=== PATIENT | female | born 1995 | race African-American/Black ===

== ENCOUNTER 2020-04-30 06:00 | Inpatient (IN) | payer OTHER ==
[2020-04-30] MEDS: ELECTROLYTE-148 SOLN 1,000 ML IV SCH ×2 (07:00→09:00)
--- NOTE | 2020-04-30 07:49 | HP ---
Past Medical History - Primary Care Physician PCP:: Samy Garcia - Admission Chief Complaint: painful UC History of Present Illness: 25 yo EDC 05/03/2020 (first sono @ 11 wks) presents to LD c/o painful UC; pt states that is leaking clear fluid since yesterday History Source: Patient Limitations to Obtaining History: No Limitations - Past Medical History ...: 1 ...Para: 0 ...EDC by Sono: 05/03/20 - Past Surgical History Past Surgical History: Yes: None Hx Myomectomy: No Hx Transabdominal Cerclage: No - Smoking History Smoking history: Never smoked Have you smoked in the past 12 months: No - Alcohol/Substance Use History of Substance Use: reports: None (Thoracic dextroscoliosis) - Social History History of Recent Travel: No Home Medications - Allergies Allergies/Adverse Reactions: Allergies Allergy/AdvReac Type Severity Reaction Status Date / Time No Known Allergies Allergy Verified 04/30/20 06:53 - Home Medications Home Medications: Ambulatory Orders Pnv No.95/Ferrous Fum/Folic AC [ Vitamin Tablet] 1 each PO DAILY 04/30/20 Family Medical History Family History: Unremarkable Review of Systems - Review of Systems Constitutional: reports: No Symptoms Eyes: reports: No Symptoms HENT: reports: No Symptoms Neck: reports: No Symptoms Cardiovascular: reports: No Symptoms Respiratory: reports: No Symptoms Gastrointestinal: reports: No Symptoms Genitourinary: reports: No Symptoms, Pain Breasts: reports: No Symptoms Reported Musculoskeletal: reports: No Symptoms Integumentary: reports: No Symptoms Neurological: reports: No Symptoms Endocrine: reports: No Symptoms Hematology/Lymphatic: reports: No Symptoms Psychiatric: reports: No Symptoms Physical Exam - Maternity Vital Signs: Vital Signs Temperature 98.2 F 04/30/20 07:00 Pulse Rate 80 04/30/20 07:00 Respiratory Rate 20 04/30/20 07:00 Blood Pressure 141/81 04/30/20 07:00 O2 Sat by Pulse Oximetry (%) Constitutional: Yes: Well Nourished, No Distress Eyes: Yes: WNL HENT: Yes: WNL Neck: Yes: WNL Cardiovascular: Yes: WNL Breast(s): Yes: WNL - Abdominal Exam/OB Number of Fetuses: Single Presentation: Vertex Contractions: Yes Regularity: Regular Intensity: Mild/Mod Monitor Mode: External Heart Rate Location: [facility] Category: I Accelerations: Uniform Decelerations: None - Vaginal Exam/OB Dilatation (cm): 6 Effacement (%): 100 Amniotic Membrane Status: Ruptured Presentation: Vertex/Position Station: 0 - Physical Exam Musculoskeletal: Yes: WNL Extremities: Yes: WNL Edema: Yes Integumentary: Yes: WNL ...Motor Strength: WNL Psychiatric: Yes: WNL Hemorrhage Risk Assessment - Risk Factors Risk Score: 1 Risk Level: Medium Risk Problem List - Problems (1) 39 weeks gestation of Code(s): Z3A.39 - 39 WEEKS GESTATION OF (2) SROM (spontaneous rupture of membranes) Code(s): VJI4972 - (3) Morbid (severe) obesity due to excess calories Code(s): E66.01 - MORBID (SEVERE) OBESITY DUE TO EXCESS CALORIES Assessment/Plan Admit to LD Anticipate
[2020-04-30 08:05] LABS: INR 0.94 (0.83-1.09); PROTHROMBIN TIME (PATIENT) 11.1 SEC (9.7-13.0)
[2020-04-30 08:07] LABS: ACTIVATED PTT 31.7 SECONDS (25.2-36.5)
[2020-04-30 08:13] LABS: BASO % 0.5 % (0-2.0); EOS % 0.2 % (0-4.5); HEMATOCRIT 39.6 % (32.4-45.2); LYMPH % 16.6 % (8-40); MCH 28.5 pg (25.7-33.7); MCHC 32.7 g/dl (32.0-36.0); MEAN CELL VOLUME 87.1 fl (80-96); MEAN PLT VOLUME 8.9 fl (7.5-11.1); MONO % 5.5 % (3.8-10.2); NEUT % 77.2 % (42.8-82.8); PLATELET COUNT 205 K/MM3 (134-434); RBC 4.55 M/mm3 (3.60-5.2); RDW 15.9 % (11.6-15.6); WHITE BLOOD COUNT 13.5 K/mm3 (4.0-10.0)
[2020-04-30 08:15] VITALS: BMI 43.3
[2020-04-30 08:22] LABS: POTASSIUM 3.9 mmol/L (3.5-5.1)
[2020-04-30] MEDS ORDERED: FENTANYL/BUPIVACAINE/NS/PF - PCEA - 50 ML DISP.SYRIN EP ONE ×2 (08:22→13:23)
[2020-04-30 08:28] LABS: BLOOD UREA NITROGEN 8.5 mg/dL (7-18); CALCIUM 8.9 mg/dL (8.5-10.1); CREATININE 0.8 mg/dL (0.55-1.3)
[2020-04-30] MEDS ORDERED: NALOXONE HCL 0.4 MG/ML VIAL IVPUSH PRN (08:47)
[2020-04-30] MEDS ORDERED: BUPIVACAINE HCL/PF 0.25% (2.5MG/ML) 10 ML VIAL ONE (08:48)
[2020-04-30] MEDS ORDERED: FENTANYL/BUPIVACAINE/NS/PF - PCEA - 50 ML DISP.SYRIN EP SCH (09:00)
[2020-04-30] MEDS ORDERED: PHENYLEPHRINE HCL 10 MG/1 ML SINGLE DOSE VIAL ONE (09:23)
[2020-04-30] MEDS ORDERED: OXYTOCIN 20 UNITS in 0.9% NS 20 UNIT/1,000 ML INFUS.BAG IV ONE ×2 (10:05→16:03)
[2020-04-30] MEDS ORDERED: OXYTOCIN 30 UNITS in 0.9% NS 30 UNIT/500 ML INFUS.BAG IVPB ONE (10:05)
--- NOTE | 2020-04-30 10:10 | PN ---
Progress Note (short form) - Note Progress Note: Patient comfortable on epidural analgesia. VSS afebrile EFM - Baseline 140/min, moderate variability, accelerations no decelerations Tocos - q 8 Pelvic - 7cm/100%/ -1/vertex Plan - Full term gestation in labor Anticipate vaginal delivery
[2020-04-30] MEDS ORDERED: OXYTOCIN 30 UNITS in 0.9% NS 30 UNIT/500 ML INFUS.BAG IVPB SCH (10:15)
[2020-04-30] MEDS ORDERED: LIDO 2%/EPI 1:200000 PRESRVFRE (20 ML SDVIAL) ONE (13:30)
[2020-04-30] MEDS: OXYTOCIN 20 UNITS in 0.9% NS 20 UNIT/1,000 ML INFUS.BAG IV SCH ×2 (15:53→17:00)
[2020-04-30] MEDS ORDERED: CEFAZOLIN 2 GM/D5W 2 GM/50 ML ML IVPB ONE (16:02)
[2020-04-30] MEDS ORDERED: IBUPROFEN 600 MG TABLET (FP) PO ONE (16:34)
[2020-04-30] MEDS ORDERED: ACETAMINOPHEN 325 MG TABLET (FP) ONE (16:35)
[2020-04-30] MEDS ORDERED: WITCH HAZEL 50% (TUCKS) 40 PAD/JAR PAD TP PRN (16:37)
[2020-04-30] MEDS ORDERED: BENZOCAINE 20% 57 GM BOTTLE TP PRN (16:37)
[2020-04-30] MEDS ORDERED: BENZOCAINE 28 GM HEMORRHOIDAL OINTMENT TP PRN (16:37)
[2020-04-30] MEDS ORDERED: METHYLERGONOVINE MALEATE 0.2 MG/1 ML AMP IM PRN (16:37)
--- NOTE | 2020-04-30 16:37 | PN ---
Progress Note (short form) - Note Progress Note: Patient comfortable on epidural analgesia VSS, afebrile EFM - Baseline 140/min, moderate variability, accelerations, variable decelerations Tocos - q 4 Pelvic - 9cm/100%/) Plan - Full term gestation approaching second stage labor Anticipate vaginal delivery.
[2020-04-30] MEDS ORDERED: ceFAZolin 2 GRAM PREMIX BAG IVPB ONE (16:42)
[2020-04-30] MEDS: IBUPROFEN 600 MG TABLET (FP) PO PRN (16:45)
[2020-04-30] MEDS: ACETAMINOPHEN 325 MG TABLET (FP) PO PRN (16:45)
--- NOTE | 2020-04-30 16:51 | PN ---
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
[2020-04-30 16:58] LABS: CORD BASE EXCESS -6.7 mmol/L (0-2); CORD HCO3 21.9 mmHg (20-29); CORD PCO2 54.9 mmHg (30-78); CORD pH 7.219 (7.14-7.44)
[2020-04-30 16:59] LABS: CORD BASE EXCESS -5.2 mmol/L (0-2); CORD HCO3 23.3 mmHg (20-29); CORD PCO2 56.1 mmHg (30-78); CORD pH 7.237 (7.14-7.44)
[2020-05-01 08:05] LABS: BASO % 0.4 % (0-2.0); EOS % 0.4 % (0-4.5); HEMATOCRIT 35.6 % (32.4-45.2); HEMOGLOBIN 11.6 GM/dL (10.7-15.3); LYMPH % 19.8 % (8-40); MCH 28.7 pg (25.7-33.7); MCHC 32.6 g/dl (32.0-36.0); MONO % 6.9 % (3.8-10.2); NEUT % 72.5 % (42.8-82.8); PLATELET COUNT 185 K/MM3 (134-434); RBC 4.04 M/mm3 (3.60-5.2)
[2020-05-01] MEDS: DOCUSATE SODIUM 100 MG CAPSULE (FP) PO SCH (10:38)
[2020-05-01] MEDS: PRENATAL VITAMINS W/ FOLIC ACID TABLET (FP) PO SCH (10:38)
[2020-05-01] MEDS ORDERED: SENNOSIDES/DOCUSATE COMBO (SENNA PLUS) TABLET (UD) PO PRN (22:00)
--- NOTE | 2020-05-01 22:33 | PN ---
Post Progress Note Post Day: 1 Type of Delivery: Spon Vaginal Breech Vital Signs: Vital Signs Temperature 98 F 05/01/20 14:00 Pulse Rate 71 05/01/20 14:00 Respiratory Rate 20 05/01/20 14:00 Blood Pressure 116/82 05/01/20 14:00 O2 Sat by Pulse Oximetry (%) 100 04/30/20 17:45 Breast Exam: Yes: Soft Uterus: Yes: Fundus Firm, Fundus below umbilicus, Non-tender Abdomen/GI: Yes: Abdomen soft, Tolerating PO Lochia: Yes: Rubra Lochia, amount: Small Extremities: Yes: Calves non-tender Perineum: Yes: Episiotomy - Labs Labs: CBC WBC 16.0 K/mm3 (4.0-10.0) H 05/01/20 07:41 RBC 4.04 M/mm3 (3.60-5.2) 05/01/20 07:41 Hgb 11.6 GM/dL (10.7-15.3) 05/01/20 07:41 Hct 35.6 % (32.4-45.2) 05/01/20 07:41 MCV 88.0 fl (80-96) 05/01/20 07:41 MCH 28.7 pg (25.7-33.7) 05/01/20 07:41 MCHC 32.6 g/dl (32.0-36.0) 05/01/20 07:41 RDW 16.0 % (11.6-15.6) H 05/01/20 07:41 Plt Count 185 K/MM3 (134-434) 05/01/20 07:41 MPV 9.0 fl (7.5-11.1) 05/01/20 07:41 Absolute Neuts (auto) 11.6 K/mm3 (1.5-8.0) H 05/01/20 07:41 Neutrophils % 72.5 % (42.8-82.8) 05/01/20 07:41 Lymphocytes % 19.8 % (8-40) 05/01/20 07:41 Monocytes % 6.9 % (3.8-10.2) 05/01/20 07:41 Eosinophils % 0.4 % (0-4.5) D 08/03/20 07:41 Basophils % 0.4 % (0-2.0) 05/01/20 07:41 Nucleated RBC % 0 % (0-0) 05/01/20 07:41 Assessment/Plan S/P , ppd # 1, stable Discharge home.
--- NOTE | 2020-05-01 22:39 | DS ---
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 Signs: Vital Signs Temperature 98 F 05/01/20 14:00 Pulse Rate 71 05/01/20 14:00 Respiratory Rate 20 05/01/20 14:00 Blood Pressure 116/82 05/01/20 14:00 O2 Sat by Pulse Oximetry (%) 100 04/30/20 17:45 Constitutional: Yes: Well Nourished Eyes: Yes: WNL HENT: Yes: WNL Neck: Yes: WNL Cardiovascular: Yes: WNL Respiratory: Yes: WNL Gastrointestinal: Yes: WNL Renal/: Yes: WNL Pelvis: Yes: WNL External Genitalia: Yes: Normal Vaginal Exam: Yes: Normal Cervix: Yes: Normal Uterus: Yes: Normal Adnexa: Normal: Bilateral ....Post : Yes: Uterus firm, Slight lochia rubra Breast(s): Yes: WNL Musculoskeletal: Yes: WNL Extremities: Yes: WNL Edema: No Integumentary: Yes: WNL Neurological: Yes: WNL ...Motor Strength: WNL Psychiatric: Yes: WNL Labs: CBC, BMP 05/01/20 07:41 04/30/20 07:40 Delivery - Delivery Vaginal Delivery: No Problems, Spontaneous Type of Anesthesia: Epidural Episiotomy/Laceration: Right Mediolateral, 1st degree EBL (cc): 300 Delivery, Single - Stages of Labor Date 1st Stage Initiatied: 04/30/20 Time 1st Stage Initiated: 01:00 Date 2nd Stage Initiated: 04/30/20 Time 2nd Stage Initiated: 14:20 Date of Delivery: 04/30/20 Time of Delivery: 15:48 Time Placenta Delivered: 15:53 Placenta: Yes: Spontaneous, Normal Configuration - 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 Name: Lupe Thao Gender: Male Weight: 3.289 kg Position: Left, OA - 1 Minute Total Score: 9 5 Minutes Total Score: 9 - [place] Feeding Plan Initial Plan: Exclusive throughout hospitalization Benefits of Exclusively reinforced: Yes Discharge Summary Problems reviewed: Yes Reason For Visit: LABOR ADMIT Current Active Problems 39 weeks gestation of (Acute) Morbid (severe) obesity due to excess calories (Acute) SROM (spontaneous rupture of membranes) (Acute) Condition: Stable - Instructions Referrals: Case Ocasio [Primary Care Provider] - Samy Garcia MD [Staff Physician] - Disposition: HOME - Home Medications Comprehensive Discharge Medication List: Ambulatory Orders Pnv No.95/Ferrous Fum/Folic AC [ Vitamin Tablet] 1 each PO DAILY 04/30/20
[2020-05-02] MEDS: IBUPROFEN 600 MG TABLET (FP) PO PRN (06:09)
[2020-05-02] MEDS: ACETAMINOPHEN 325 MG TABLET (FP) PO PRN (06:10)
[2020-05-02] MEDS: PRENATAL VITAMINS W/ FOLIC ACID TABLET (FP) PO SCH (09:51)
[2020-05-02] MEDS: DOCUSATE SODIUM 100 MG CAPSULE (FP) PO SCH (09:51)
[2020-05-02 09:52] VITALS: BP 115/63; PULSE 89; TEMP 98.2
== END 2020-05-02 12:05 | disposition home or self-care (01) | DRG 560 ==
LOC: JDEL 06:00 → JLDR 06:35 → J3W 18:00
PROVIDERS: ADMIT Obstetrics & Gynecology; ATTEND Obstetrics & Gynecology
PROC: 0HQ9XZZ Repair Perineum Skin, External Approach (ICD-10-PCS; principal; 2020-04-30)
PROC: 10E0XZZ Delivery of Products of Conception, External Approach (ICD-10-PCS; 2020-04-30)
DX: O70.0 First degree perineal laceration during delivery (principal); O99.214 Obesity complicating childbirth; Z3A.39 39 weeks gestation of pregnancy; Z37.0 Single live birth
CPT/HCPCS: 36415; 36600; 59025; 59409; 80048; 82803; 85025; 85610; 85730; 86780; 86850; 86900; 86901; U0003